=== PATIENT | male | born 1955 | race Caucasian/White ===

== ENCOUNTER 2017-11-17 12:31 | Emergency (ER) | payer OTHER ==
[~2017-11-17] VITALS: Ht 172.7 cm; Wt 77.1 kg
[~2017-11-17 12:31] MED LIST: ATEN25TA PO; QUET100T PO
[2017-11-17] MEDS ORDERED: NEURONTIN (12:42)
[2017-11-17] MEDS ORDERED: LOVASTATIN (12:42)
[2017-11-17] MEDS ORDERED: QUET25TA3 (12:42)
[2017-11-17] MEDS ORDERED: LISINOPRIL (12:42)
[2017-11-17 13:20] LABS: *BILIRUBIN,URIN NEGATIVE (NEGATIVE); *BLOOD, URINE Trace-intact (NEGATIVE); *CLARITY,URINE CLEAR (CLEAR); *COLOR,URINE YELLOW (YELLOW); *KETONES,URINE NEGATIVE (NEGATIVE); *PROTEIN,URINE TRACE (NEGATIVE); LEUKOCYTE ESTERASE ,URINE NEGATIVE (NEGATIVE); NITRITE, URINE NEGATIVE (NEGATIVE); UGLUCOSE NEGATIVE (NEGATIVE)
[2017-11-17 13:20] LABS: BASOPHILS % (AUTO) 0.9 % (0.0-2.0); CARBON DIOXIDE 28 mmol/L (21-32); CHLORIDE 104 mmol/L (98-107); CREATININE 0.6 mg/dL (0.6-1.3); EOSINOPHILS % (AUTO) 0.9 % (0.0-7.0); GLUCOSE 105 mg/dL (74-106); HEMOGLOBIN 13.4 g/dL (12.5-16.3); LYMPHOCYTES # (AUTO) 1.5 K/uL (20.0-40.0); LYMPHOCYTES % (AUTO) 35.2 % (20.5-51.5); MEAN CORPUSCULAR HEMOGLOBIN 31.5 uug (23.8-33.4); MEAN CORPUSCULAR HGB CONC 34 g/dL (32.5-36.3); MEAN CORPUSCULAR VOLUME 93.9 fL (73.0-96.2); MONOCYTES # (AUTO) 0.5 K/uL (2.0-10.0); MONOCYTES % (AUTO) 12.9 % (0.0-11.0); NEUTROPHILS # (AUTO) 2.1 K/uL (1.8-8.9); NEUTROPHILS % (AUTO) 50.1 % (38.5-71.5); PLATELET COUNT (AUTO) 192 K/uL (152-348); POTASSIUM 3.6 mmol/L (3.5-5.1); RED BLOOD CELL COUNT(AUTO) 4.26 MIL/uL (4.06-5.63); UREA NITROGEN, BLOOD 11 mg/dL (7-18); WHITE BLOOD COUNT (AUTO) 4.2 K/uL (3.6-10.2)
[2017-11-17 13:26] LABS: ALANINE AMINOTRANSFERASE 105 U/L (16-63); ALKALINE PHOSPHATASE 71 U/L (50-136); ASPARTATE AMINOTRANSFERASE 100 U/L (15-37); BILIRUBIN,DIRECT 0.3 mg/dL (0.0-0.2); BILIRUBIN,TOTAL 0.8 mg/dL (0.2-1.0); ETHANOL 297 MG/DL (0-0); TOTAL PROTEIN, SERUM 7.1 g/dL (6.4-8.2)
[2017-11-17 13:34] LABS: BACTERIA,URINE FEW /HPF (NONE SEEN); MUCUS,URINE FEW /LPF (0-FEW); RBC,URINE 0-3 /HPF (0-3); SQUAMOUS EPITHELIAL CELL,UR NONE SEEN /HPF (NONE SEEN); WBC,URINE NONE SEEN /HPF (0-3)
[2017-11-17 13:34] LABS: THYROID STIMULATING HORMONE 1.181 mIU/mL (0.358-3.740)
[2017-11-17 13:35] LABS: *AMPHETAMINE, URINE NEGATIVE (NEGATIVE); *BARBITURATE, URINE POSITIVE (NEGATIVE); *CANNABINOID, URINE NEGATIVE (NEGATIVE); *COCCAINE, URINE NEGATIVE (NEGATIVE); *OPIATE, URINE NEGATIVE (NEGATIVE); *PHENCYCLIDINE SCREEN,URINE NEGATIVE (NEGATIVE)
[2017-11-17] MEDS ORDERED: ONDANSETRON ODT 4 MG TAB.RAPDIS ONE (13:44)
[2017-11-17] MEDS ORDERED: LORAZEPAM 1 MG TABLET ONE (13:44)
[2017-11-17] MEDS ORDERED: LORAZEPAM 0.5 MG TABLET PO ONE (13:45)
[2017-11-17] MEDS ORDERED: ONDANSETRON ODT 4 MG TAB.RAPDIS SL ONE (13:45)
--- NOTE | 2017-11-17 14:31 | NUR ---
Patient discharged to home in stable conditon with family. Written and verbal after care instructions given. Patient and family verbalizes understanding of instructions.
== END 2017-11-17 14:32 | disposition home or self-care (01) ==
LOC: ER 12:31
DX: Z00.00 Encounter for general adult medical examination without abnormal findings (principal); F10.129 Alcohol abuse with intoxication, unspecified; I10 Essential (primary) hypertension; F17.210 Nicotine dependence, cigarettes, uncomplicated; Z88.8 Allergy status to other drugs, medicaments and biological substances; Z79.899 Other long term (current) drug therapy
CPT/HCPCS: 36415; 71045; 80307; 84443; 85025; 85730; 93005; A4663; G0480; Q0162

== ENCOUNTER 2017-11-23 11:47 | Emergency (ER) | payer OTHER ==
[~2017-11-23] VITALS: Ht 175.3 cm; Wt 65.8 kg
[~2017-11-23 11:47] MED LIST changes: -ATEN25TA PO; +LISINOPRIL; +LOVASTATIN; +NEURONTIN; -QUET100T PO; +QUET25TA3
[2017-11-23] MEDS ORDERED: LAMICTAL (12:02)
[2017-11-23] MEDS ORDERED: GABAPENTIN (12:02)
--- NOTE | 2017-11-23 12:06 | NUR ---
PT I IN ROOM #2B. DR OLIVAS EVALUATED THE PT.
--- NOTE | 2017-11-23 13:21 | NUR ---
PT WAS D/C TO HOME. D/C INSTRUCTIONS GIVEN TO THE PT.
[2017-11-23 13:22] VITALS: BP 136/79
== END 2017-11-23 13:23 | disposition home or self-care (01) ==
LOC: ER 11:47
DX: S80.12XA Contusion of left lower leg, initial encounter (principal); I10 Essential (primary) hypertension; F17.210 Nicotine dependence, cigarettes, uncomplicated; Z88.8 Allergy status to other drugs, medicaments and biological substances; Z79.899 Other long term (current) drug therapy; W22.8XXA Striking against or struck by other objects, initial encounter; Y93.89 Activity, other specified; Y92.89 Other specified places as the place of occurrence of the external cause; Y99.8 Other external cause status
CPT/HCPCS: 73610; A4663

== ENCOUNTER 2018-02-17 11:52 | Emergency (ER) | payer OTHER ==
[~2018-02-17] VITALS: Ht 172.7 cm; Wt 77.1 kg
[~2018-02-17 11:52] MED LIST changes: +GABAPENTIN; +LAMICTAL; -NEURONTIN; -QUET25TA3
--- NOTE | 2018-02-17 12:23 | NUR ---
PT IS IN ROOM #2B. DR MONDRAGON EVALUATED THE PT.
--- NOTE | 2018-02-17 12:38 | NUR ---
PT WAS D/C 'd DO HOME. D/C INSTRUCTIONS GIVEN TO THE PT.
[2018-02-17 12:40] VITALS: BP 138/81
== END 2018-02-17 12:42 | disposition home or self-care (01) ==
LOC: ER 11:54
DX: I10 Essential (primary) hypertension (principal); F17.210 Nicotine dependence, cigarettes, uncomplicated; Z88.8 Allergy status to other drugs, medicaments and biological substances; Z79.899 Other long term (current) drug therapy
CPT/HCPCS: A4663

== ENCOUNTER 2018-09-20 20:18 | Emergency (ER) | payer SELFPAY ==
--- NOTE | 2018-09-20 20:30 | NUR ---
LWBT, LEFT ON A TAXI
== END 2018-09-20 20:30 | disposition left against medical advice (07) ==
LOC: ER 20:18
DX: Z53.21 Procedure and treatment not carried out due to patient leaving prior to being seen by health care provider (principal)